=== PATIENT | female | born 1960 | race Caucasian/White ===

== ENCOUNTER 2017-11-29 07:56 | Observation (INO) | payer BC ==
[2017-11-29 08:29] LABS: #Eosinphils 0.2 thou/uL (0.0-0.7); #Lymphocytes 1.4 thou/uL (1.20-3.40); #Monocytes 0.6 thou/uL (0.11-0.59); %Basophils 0.3 % (0.0-1.0); %Eosinophils 2.4 % (0.0-10.0); %Monocytes 7.9 % (0.0-10.0); %Neutrophils 70.4 % (42.0-75.0); Hemoglobin 14.2 g/dL (12.0-16.0); Mean Corpuscular HGB CONC 32.2 g/dL (32.0-36.0); Mean Corpuscular Hemoglobin 30.6 pg (27.0-31.0); Mean Corpuscular Volume 94.8 fl (81.0-99.0); Mean Platelet Volume 7.1 fL (7.4-10.4); Platelet Count 297 thou/uL (130-400); Red Blood Cell (RBC) Count 4.64 mill/uL (4.20-5.40); White Blood Cell (WBC) Count 7.1 thou/uL (4.8-10.8)
[2017-11-29] MEDS ORDERED: Ondansetron ODT 4 MG TAB ONE (08:44)
[2017-11-29 08:58] LABS: CKMB 0.7 ng/mL (0-6.6); Troponin I Less than 0.010 ng/mL (< 0.028)
[2017-11-29 09:00] LABS: ALT (SGPT) 22 U/L (8-55); AST (SGOT) 18 U/L (5-34); Albumin 3.6 g/dL (3.5-5.0); Alkaline Phosphatase 60 U/L (40-150); Anion Gap 12 mmol/L (10-20); BUN (Urea Nitrogen) 11 mg/dL (9.8-20.1); Bilirubin, Total 0.4 mg/dL (0.2-1.2); CK (CPK) 45 U/L (29-168); Calc. Creatinine Clearance 0 mL/min (70-130); Calcium 9.7 mg/dL (7.8-10.44); Carbon Dioxide 25 mmol/L (22-29); Chloride 104 mmol/L (98-107); Estimated GFR-MDRD 84; Glucose 117 mg/dL (70-105); Lipase 32 U/L (8-78); Potassium 4.1 mmol/L (3.5-5.1); Protein, Total 7.6 g/dL (6.0-8.3); Sodium 137 mmol/L (136-145)
--- NOTE | 2017-11-29 09:02 | RAD ---
PORTABLE CHEST 1 VIEW: Date: 11/29/17 Time: 0840 hours HISTORY: Chest pain, abdominal pain, nausea, and vomiting. FINDINGS/IMPRESSION: The heart size is borderline. The lungs are well expanded without confluent areas of consolidation, p neumothorax, veronika pulmonary edema, or pleural effusions. POS: [facility]
--- NOTE | 2017-11-29 09:55 | CT ---
CT ANGIOGRAM OF CHEST WITH IV CONTRAST AND 3D POSTPROCESSING CT ANGIOGRAM OF THE ABDOMEN WITH IV CONTRAST AND 3D POSTPROCESSING: Date: 11/29/17 HISTORY: 57-year-old female with chest pain radiating to the back. Concern for aortic dissection. FINDINGS: The thoracoabdominal aorta demonstrates no evidence of vascular calcifications or aneurysmal dilatati on. No intimal flap is seen to suggest dissection. There is good flow and normal caliber of the uriel c axis, SMA, ANTHONY, and renal arteries. The pulmonary arterial vasculature is well opacified without fi lling defects to suggest pulmonary embolism. No pleural or pericardial effusions are seen. There are mild patchy ground-glass infiltrates bilatera lly. A peripheral 7.0 mm nodule is seen in the left lower lobe posteriorly. No free air, or free fluid is seen in the abdomen. Calcified gallstones are present. The liver, splee n, pancreas, adrenal glands, and kidneys are normal. There are degenerative changes in the thoracolum bar spine. IMPRESSION: 1. No evidence of aortic aneurysm or dissection. 2. 7.0 mm left lower lobe nodule. 3. Cholelithiasis. 4. Patchy ground-glass infiltrates in the lungs bilaterally. RECOMMENDATION: A follow-up CT scan of the chest is recommended in [address] POS: [facility]
[2017-11-29] MEDS ORDERED: Ondansetron HCl/PF 4 MG/2 ML Vial ONE ×2 (10:42→10:46)
[2017-11-29] MEDS ORDERED: Lidocaine Viscous Sol 2% 15 ml UD Cup ONE (10:46)
[2017-11-29] MEDS ORDERED: Promethazine HCl 25 MG/ML VIAL ONE (12:01)
[2017-11-29] MEDS ORDERED: Mag-Al 1200 mg/1200 mg/30 ML UDCUP ONE (12:11)
[2017-11-29] MEDS ORDERED: Pantoprazole 40 MG VIAL ONE (12:55)
[2017-11-29 13:15] LABS: CKMB 0.6 ng/mL (0-6.6); Troponin I Less than 0.010 ng/mL (< 0.028)
[2017-11-29] MEDS ORDERED: Ondansetron HCl/PF 4 MG/2 ML Vial IVP PRN (13:36)
[2017-11-29 14:29] VITALS: BMI 28.2
[2017-11-29] MEDS: Sodium Chloride 0.9% 1,000 ML IV SCH (14:56)
[2017-11-29 15:55] LABS: Troponin I Less than 0.010 ng/mL (< 0.028)
[2017-11-29] MEDS ORDERED: Lidocaine 2% Viscous Solution 20 ML, Aluminum & Magnesium Hydroxide 30 ML, Donnatal Eli... SSW SCH ×3 (16:00)
--- NOTE | 2017-11-29 16:16 | ULT ---
RIGHT UPPER QUADRANT SONOGRAM: Date: 11/29/17 HISTORY: Right upper quadrant pain. FINDINGS: Shadowing stones are present within the dependent portion of the gallbladder lumen. There is no gallb ladder wall thickening or pericholecystic fluid. Common duct is 0.6 cm. Liver is unremarkable without focal mass or intrahepatic biliary dilatation. No free fluid is apparent. IMPRESSION: Cholelithiasis. No evidence of acute biliary obstruction. POS: [facility]
[2017-11-29] MEDS ORDERED: guaiFENesin/Codeine Phosphate 200 mg/20 mg 10 ml UD Cup PO PRN (16:40)
[2017-11-29] MEDS ORDERED: ISOVUE-370 76%-LOCM 1 ML ONE (16:53)
--- NOTE | 2017-11-29 17:59 | HP ---
CHIEF COMPLAINT: Epigastric pain. HISTORY OF PRESENT ILLNESS: Patient is a very pleasant 57-year-old female with no signific ant past medical history who comes in today to the ER with complaints of significant epigastric pain radiating to her back. The patient stated that she woke up this morning at around 5:30 with severe e pigastric pain radiating to her back with some and one bout of vomiting; however, no diarrhea. The p atient denies any fevers or chills. The patient states that she did eat a hamburger last night, whlucille h was not home cooked. However, she has no other family member that has been also ill. The patient furthermore states that patient has been having on and off congestion with cough going on for the pas t year. Initially, she was seen by PCP in October and was given some steroids and antibiotics which her symptoms resolved. However, in summertime, her symptoms came back, was put again on steroids and some antibiotics and then again her symptoms started about 2 weeks ago. Patient states that she was not feeling well as she was congested. She thought she had "the flu." However, she did not go to h er PCP. The patient denies any significant shortness of breath, any chest pressure or chest discomfo rt. No recent use of any medications or anything that would exacerbate the epigastric pain. The pat ient in the ER initially underwent an x-ray which showed some bilateral infiltrates, so she underwent a CTA to rule out any aortic dissection. She had no aortic dissection; however, had chronic ground glass opacity in both of her lungs. She was started on antibiotics in the ER. PAST MEDICAL HISTORY: Patient denies any significant past medical history. PAST SURGICAL HISTORY: The patient had C-sections with her children. SOCIAL HISTORY: She denies any smoking or secondhand smoking. Denies any alcohol use; however, she does live in a home that uses wood burning heating system. ALLERGIES: She has no known drug allergies. MEDICATIONS: She takes none. SOCIAL HISTORY: She denies any smoking or secondhand smoking. Denies any alcohol use; however, she does live in a home that uses wood burning heating system. REVIEW OF SYSTEMS: She does have significant epigastric pain radiating to her back and complains of a cough; however, she is spitting up some clear sputum. Otherwise, everything is negative. PHYSICAL EXAMINATION: GENERAL: Patient appears a little sick, appears to be congested. HEENT: Normocephalic, atraumatic. NECK: No lymphadenopathy. Mucosa appears a little bit dry. CARDIOVASCULAR: S1, S2 present. No murmurs, rubs or gallops. LUNGS: Clear upon auscultation. ABDOMEN: Bowel sounds are present x2. The patient does have mild tenderness upon palpation of the e pigastric area. No flank tenderness noted. EXTREMITIES: No edema noted. LABORATORY DATA AND IMAGING DATA: Lab castillo, patient's lipase was normal at 32, 137 of sodium, potass ium 4.1, chloride of 104, carbon dioxide of 25, glucose of 117, creatinine 0.72. AST and ALT normal, alkaline phosphatase normal. Troponin is negative. Her WBCs 7.1, hemoglobin of 14.2, platelets of 297. The patient had a CT chest which indicated no evidence of aortic aneurysm or dissection. She d oes have a 7.0 mm left lower pleural lobe nodule and patchy ground glass infiltrates in her lung bila terally. ASSESSMENT AND PLAN: The patient is a very pleasant 57-year-old female who initially presented to [facility] with severe epigastric pain radiating to her back. 1. Epigastric pain. Differential including pancreatitis versus peptic ulcer disease versus aortic d issection versus acute gallbladder or cholecystitis. Patient's lipase is completely normal. The pat ient did get Protonix in the ER and gastrointestinal cocktail with some relief. Patient's hemoglobin and hematocrit is stable. She has got no recent use of any nonsteroidal anti-inflammatory drugs. T he patient did undergo right upper quadrant ultrasound which indicated cholelithiasis; however, no ac [place] cholecystitis was noted. Her LFTs and alkaline phosphatase, including her bilirubin were normal. Troponins also were negative. No EKG was done. We will order an EKG. We will start patient on Pe pcid 20 mg b.i.d. Also, we will give patient gastrointestinal cocktail. If patient's abdominal pain does not improve, may consider consulting GI. However, right now, I believe and also we will hydrat e the patient with some fluids. She appears to be mildly dehydrated, which could also be worsening h er abdominal pain. 2. Patchy ground glass infiltrates. I am not sure patient's baseline chest x-ray. She has not had one in this facility before; however, she just had a couple bouts which appeared to be possible bronc hitis last year. Prior to that, she had no symptoms. I did ask for a history of possible shortness of breath on exertion which she had none. She had no orthopnea or PND. I do not think this would be in terms of any heart failure. However, the ground glass infiltrates need further workup in terms o f a pulmonary consult, which I will give her the name and number, so she can follow up as an outpatie nt. I do not believe this is urgent to be treated while she is hospitalized. Patient is not hypoxic . Her oxygen saturation in the ER was 95% on room air. For deep venous thrombosis prophylaxis, shyam ent is quite ambulatory. We will just start her on sequential compression devices.
[2017-11-29] MEDS: Famotidine/PF 20 mg/2ml Vial SLOW IVP SCH (19:43)
[2017-11-29] MEDS ORDERED: FLU VACC QS2017-18 36 mo. & older 0.5 ML SYRINGE IM ONE (21:00)
[2017-11-30] MEDS: Sodium Chloride 0.9% 1,000 ML IV SCH (03:52)
[2017-11-30 06:08] LABS: ALT (SGPT) 18 U/L (8-55); AST (SGOT) 15 U/L (5-34); Albumin 3.3 g/dL (3.5-5.0); Alkaline Phosphatase 56 U/L (40-150); Anion Gap 9 mmol/L (10-20); BUN (Urea Nitrogen) 5 mg/dL (9.8-20.1); Bilirubin, Total 0.6 mg/dL (0.2-1.2); Calc. Creatinine Clearance 116 mL/min (70-130); Calcium 8.9 mg/dL (7.8-10.44); Carbon Dioxide 27 mmol/L (22-29); Chloride 104 mmol/L (98-107); Estimated GFR-MDRD Greater than 90; Globulin 3.6 g/dL (2.4-3.5); Glucose 115 mg/dL (70-105); Potassium 3.4 mmol/L (3.5-5.1); Protein, Total 6.9 g/dL (6.0-8.3); Sodium 137 mmol/L (136-145)
[2017-11-30 06:35] LABS: Band 9 % (5-11); Eosinophils 1 % (0-10); Hemoglobin 12.8 g/dL (12.0-16.0); Lymphocytes 15 % (21-51); MDiff Complete? YES; Mean Corpuscular HGB CONC 32.1 g/dL (32.0-36.0); Mean Corpuscular Hemoglobin 30.6 pg (27.0-31.0); Mean Corpuscular Volume 95.4 fl (81.0-99.0); Mean Platelet Volume 7.5 fL (7.4-10.4); Monocytes 7 % (0-10); Neutrophil 68 % (42-75); Platelet Count 267 thou/uL (130-400); RBC Distribution Width 12.2 % (11.5-14.5); Red Blood Cell (RBC) Count 4.18 mill/uL (4.20-5.40); White Blood Cell (WBC) Count 10.9 thou/uL (4.8-10.8)
[2017-11-30] MEDS: Famotidine/PF 20 mg/2ml Vial SLOW IVP SCH (07:34)
[2017-11-30] MEDS ORDERED: Potassium Chloride 20 MEQ TAB PO SCH (08:00)
[2017-11-30 11:30] VITALS: BP 119/76; TEMP 97.9
[2017-11-30 11:43] LABS: Bilirubin Negative (Negative); Blood, Urine Negative (Negative); Glucose, Urine (Dipstick) Negative (Negative); Leukocyte Negative (Negative); Nitrite Negative (Negative); Protein, Urine (Dipstick) Negative (Neg-Trace); Urobilinogen 0.2 mg/dL (0.2-1.0)
[2017-11-30 11:48] LABS: Clarity CLEAR (Clear)
[2017-11-30 11:49] LABS: Specific Gravity, Urine 1.003 (1.002-1.036)
[2017-11-30 11:50] LABS: Bacteria/HPF None Seen HPF (None Seen); Hyaline Casts/LPF NONE SEEN LPF (0-3 Hyaline); RBC/HPF None Seen HPF (0-3); Squamous Epithelial 0-3 HPF (0-3); WBC/HPF None Seen HPF (0-3)
--- NOTE | 2017-12-01 00:46 | DIS ---
DATE OF ADMISSION: 11/29/2017 DATE OF DISCHARGE: 11/30/2017 DISCHARGE DIAGNOSES: 1. Epigastric pain, possible gastritis. 2. Ground glass infiltrate on lung bilaterally and a 7.0 mm left lower lobe nodule. SUMMARY OF HOSPITAL COURSE: The patient is a very pleasant 57-year-old female with no significant pa st medical history, who initially presented to the hospital with severe epigastric pain radiating to her back. The patient's lipase was normal. LFTs were normal. The patient underwent a CT for a poss ible dissection, which was noted negative. However, on the CT chest for dissection, it was noted to have significant amount of ground glass infiltrates in the lung bilaterally with a 7.0 mm left lower lobe lung nodule; however, no dissection was noted. The patient underwent a right upper quadrant ult rasound, which indicated cholelithiasis; however, no cholecystitis was noted and no biliary obstructi on was noted. The patient initially was put on IV antibiotics per ED. Procalcitonin was normal. IV antibiotics were discontinued. The patient did state that she has been having 2-3 bouts of bronchit is in the last year, also had bronchitis as a child. Based on the significant ground glass findings on the CAT scan, I did curbside a furniture upholsterer apprentice who recommended to put the patient on azithromycin fo r a few days and also follow up with Pulmonology as outpatient for her ground glass opacity and also for his 0.7 mm lung nodule, which I have discussed in detail with the patient and patient's . The patient's epigastric pain improved with Pepcid and with gentle hydration. She was able to rolando ate a meal and was discharged home. She will follow up with her PCP next week and also with Pulmonol ashley for her findings on the CAT scan. DISCHARGE MEDICATIONS: Pepcid 20 mg b.i.d. and azithromycin 250 mg for 5 days; however, initially at first she will take 500 mg.
== END 2017-11-30 15:31 | disposition home or self-care (01) ==
LOC: ERS 07:56 → INTOOBSV 12:55 → T4-B 12:55
PROVIDERS: ADMIT Internal Medicine; ATTEND Internal Medicine
DX: R10.13 Epigastric pain (principal); R91.1 Solitary pulmonary nodule; R91.8 Other nonspecific abnormal finding of lung field; X08.8XXA Exposure to other specified smoke, fire and flames, initial encounter; Y92.009 Unspecified place in unspecified non-institutional (private) residence as the place of occurrence of the external cause; Z98.891 History of uterine scar from previous surgery
CPT/HCPCS: 36415; 71045; 71275; 76705; 80053; 81001; 82553; 83690; 84145; 84484; 85007; 85025; 85027; 87040; 93005; 93010; 94760; 96361; 96365; 96375; 96376; C9113; G0378; J1956; J2270; J2405; J2550; Q0162; S0028

== ENCOUNTER 2018-01-07 09:12 | Outpatient (CLI) | payer BC ==
--- NOTE | 2018-01-07 12:00 | RAD ---
PA AND LATERAL VIEWS CHEST: HISTORY: Dyspnea. COMPARISON: 11/29/2017 FINDINGS: The heart size is borderline. The lungs are well expanded without confluent areas of consolidation, pneumothorax, or pleural effusions. No veronika pulmonary edema is seen. There are mild degenerative c hanges in the spine. IMPRESSION: No acute process. POS: [facility]
== END 2018-01-07 09:13 | disposition home or self-care (01) ==
LOC: RAD 09:12
PROVIDERS: ATTEND Internal Medicine Critical Care Medicine
DX: R06.00 Dyspnea, unspecified (principal)
CPT/HCPCS: 71046

== ENCOUNTER 2019-03-25 10:19 | Inpatient (IN) | payer BC ==
[2019-03-25 10:43] LABS: Hemoglobin 15.9 g/dL (12.0-16.0); Mean Corpuscular HGB CONC 32.6 g/dL (32.0-36.0); Mean Corpuscular Volume 95.2 fL (78.0-98.0); Mean Platelet Volume 8.7 fL (7.4-10.4); Platelet Count 247 thou/uL (130-400); RBC Distribution Width 15.5 % (11.5-14.5); Red Blood Cell (RBC) Count 5.12 mill/uL (4.20-5.40); White Blood Cell (WBC) Count 7.4 thou/uL (4.8-10.8)
[2019-03-25 10:52] LABS: ALT (SGPT) 2669 U/L (8-55); AST (SGOT) 2257 U/L (5-34); Albumin 3.5 g/dL (3.5-5.0); Alkaline Phosphatase 188 U/L (40-150); Anion Gap 11 mmol/L (10-20); BUN (Urea Nitrogen) 6 mg/dL (9.8-20.1); Bilirubin, Total 21.7 mg/dL (0.2-1.2); Calc. Creatinine Clearance 0 mL/min (70-130); Calcium 9.5 mg/dL (7.8-10.44); Carbon Dioxide 27 mmol/L (22-29); Chloride 97 mmol/L (98-107); Estimated GFR-MDRD 77; Globulin 4.5 g/dL (2.4-3.5); Glucose 96 mg/dL (70-105); Sodium 131 mmol/L (136-145)
[2019-03-25 11:11] LABS: Band 9 % (5-11); Eosinophils 2 % (0-10); Lymphocytes 16 % (21-51); MDiff Complete? YES; Monocytes 17 % (0-10); Neutrophil 52 % (42-75); Platelet Morphology Comment Appears Adequate; Polychromasia SLIGHT = 2-3 cells (100X) (0-2/hpf); Reactive Lymphocytes 2 % (0-10); Target Cells SLIGHT = 2-5 cells (100X) (0-1/hpf)
--- NOTE | 2019-03-25 12:52 | ULT ---
GALLBLADDER ULTRASOUND: HISTORY: Right upper quadrant abdominal pain, jaundice FINDINGS: The liver demonstrates homogeneous echotexture without focal mass or intrahepatic biliary ductal dila tation. The gallbladder is full of shadowing gallstones without gallbladder wall thickening or pericholecysti c fluid. The right kidney and visualized portions of the pancreas are normal. The common duct measures 6mm in diameter. No free fluid is seen in the Covington's pouch. IMPRESSION: Cholelithiasis.
[2019-03-25 14:02] LABS: INR-International Normal Ratio 1.3; PTT 34.7 SEC (22.9-36.1); Prothrombin Time 16.5 SEC (12.0-14.7)
[2019-03-25 14:13] LABS: Lactic Acid 0.9 mmol/L (0.5-2.2)
[2019-03-25 14:26] LABS: HBSAg Index 0.31 S/CO (0-0.99); Hep A IgM AB Non-Reactive (NonReactive); Hep B Surf Ag Non-Reactive S/CO (NonReactive); Hep C IgG Ab Non-Reactive (NonReactive); Hep C Index 0.24 S/CO (0-0.79); Hepatitis B Core IgM Abs Non-Reactive (NonReactive)
[2019-03-25 14:29] LABS: Bilirubin Large (Negative); Blood, Urine Negative (Negative); Clarity CLEAR (Clear); Glucose, Urine (Dipstick) Negative (Negative); Leukocyte Small (Negative); Nitrite Negative (Negative); Protein, Urine (Dipstick) Negative (Neg-Trace); Specific Gravity, Urine 1.006 (1.002-1.036); Urobilinogen 0.2 mg/dL (0.2-1.0)
[2019-03-25 14:32] LABS: Bacteria/HPF None Seen HPF (None Seen); Hyaline Casts/LPF 0-3 HYALINE CAST LPF (0-3 Hyaline); Pathc Cast-AUWi Flag 0.54 (0-2.49); Squamous Epithelial 0-3 HPF (0-3); WBC/HPF 0-3 HPF (0-3)
[2019-03-25 16:05] VITALS: BMI 33.8
[2019-03-25 17:37] LABS: Acetaminophen Less than 6.0 mcg/mL (10.0-30.0); Alcohol Less than 10 mg/dL (Less than 10); Iron 240 ug/dL (50-170); Iron Binding Capacity, Total 288 mcg/dL (265-497)
[2019-03-25 18:36] LABS: Amphetamine Not Detected (NotDetected); Barbiturates Screen Not Detected (NotDetected); Benzodiazepine Screen Not Detected (NotDetected); Cocaine Metabolite Screen Not Detected (NotDetected); Medtox Control Line Valid? VALID (VALID); Medtox Reader # READER 1; Methadone Not Detected (NotDetected); Methamphetamine Not Detected (NotDetected); Opiate Screen Not Detected (NotDetected); Oxycodone Screen Not Detected (NotDetected); Phencyclidine (PCP) Not Detected (NotDetected); THC/Cannabinoid Screen Not Detected (NotDetected); Tricyclic Screen Not Detected (NotDetected)
--- NOTE | 2019-03-25 21:39 | HP ---
CHIEF COMPLAINT ON ADMISSION: Acute hepatic injury with jaundice. HISTORY OF PRESENT ILLNESS: The patient is a 58-year-old female, who earlier at the end of last week began to start to turn yellow. Her intensity in yellow increased to the point where on the recommendation of a friend, she came to the emergency room for further evaluation. The jaundice was noted and all her liver tests were noted to be elevated. Gallstones were noted on abdominal ultrasound, but there was no blockage. She does not have a significant drinking history or the usual risk factors for hepatitis. However, she has been taking a great deal of supplements that may have caused hepatic injury through iron metabolism. PAST MEDICAL HISTORY: Fairly unremarkable. She is on no regular medication. PAST SURGICAL HISTORY: She has had no surgery. PAST PSYCHIATRIC HISTORY: She has no psychiatric issues. SOCIAL HISTORY: Just drinks one alcoholic beverage a week. Denies any illicit drug use. Has never smoked. ALLERGIES: SHE HAS NO KNOWN DRUG ALLERGIES. CURRENT MEDICATIONS: None. REVIEW OF SYSTEMS: GENERAL: Denies fever, chills, or malaise. HEENT: Denies drainage from ears, nose, or throat. CHEST: Denies any cough or shortness of breath. CARDIOVASCULAR: Denies palpitations or chest pain. GI: Denies nausea, vomiting, or diarrhea. : Denies dysuria or blood in urine or stool. MUSCULOSKELETAL: Denies any pain in joints, muscles, or integument. SKIN: No rashes or lesions aside from the yellow intensity that has also caused icterus in her eyes. PSYCHIATRIC: Negative as well. PHYSICAL EXAMINATION: VITAL SIGNS: Blood pressure 142/80, pulse 76, respirations 20, and temperature 97.7. Pain scale zero. O2 saturation 96% on room air. GENERAL: This is an obese, jaundiced female, alert, oriented, and cooperative. HEENT: Normocephalic, atraumatic. Pupils are equal, round, and reactive to light. Extraocular muscles are intact. TMs, nares, and pharynx are clear. NECK: Supple. Trachea midline. CHEST: Clear to auscultation. BREASTS: Deferred. HEART: Regular rate and rhythm without murmur. ABDOMEN: Large, unable to appreciate hepatomegaly or tenderness. : Deferred. EXTREMITIES: Without clubbing, cyanosis, or significant edema. It is just fat rather than edema present. SKIN: With intense jaundice and conjunctiva icterus. NEUROLOGIC: Cranial nerves are intact. Gait and cerebellar function not tested. Sensory exam is grossly intact. Mental status is nonfocal and clear. LABORATORY DATA: Lab work on admission shows WBCs at 7.4, hemoglobin 15.9, hematocrit 48.7 with platelets at 247. Sodium 131, potassium 4.0, chloride 97, CO2 of 27, BUN 6, creatinine 0.77 with a GFR of 77, glucose 96. Iron at 240, TIBC at 288, ferritin at 8328, total bilirubin at 21.7, AST 2257, ALT 2669, alkaline phos 188, ammonia 53. Lactate dehydrogenase is 619, lipase 43. Hepatitis diagnostic profile is negative, nonreactive for A, B, or C. Urinalysis shows large bilirubin, but otherwise unremarkable. Toxicology is completely negative. IgG elevated at 2756. PT is 16.5, INR 1.3, APTT is 34.7. Abdominal ultrasound shows cholelithiasis, but no evidence of cholecystitis. ASSESSMENT: 1. Acute hepatic injury with secondary jaundice. 2. Iron overload disorder. 3. Morbid obesity. 4. Probable overuse of dietary supplements. PLAN: Identify the contents of the dietary supplements, serially re-evaluate her liver, and GI consultation. The patient may need plasmapheresis and removal of iron, and we will serially re-evaluate her. Job ID: [id number]
--- NOTE | 2019-03-25 23:52 | CON ---
DATE OF CONSULTATION: 03/25/2019 CHIEF COMPLAINT: Jaundice. HISTORY OF PRESENT ILLNESS: Ms. Ledesma is a 58-year-old woman who 2 weeks ago had been traveling in [place] and while she was there noted some nausea. She had some persistent nausea over the next week, but this has since resolved. She has had some fatigue over the last couple of weeks, but no other significant symptoms. A week ago, she noticed that she started becoming jaundiced. Her daughter finally today told her that she needed to go to the emergency room for further care after she was having worsening noticeable jaundice. She has had no nausea, vomiting, persistently. No vomiting. No diarrhea constipation or blood in the stool. No fever. No weight loss. No prior history of liver disease. She only has an occasional drink of alcohol. She had one Trisha in February. No alcohol prior to that since September. No Tylenol use. Otherwise, she has been healthy, but she has been taking a large number of natural supplements over the last 6 months. She started a "detox" back in September. She has a multiple vitamin with numerous ingredients. She has taken multiple other supplements in addition to this. She has been on 16 different supplements over the last few months. She has no other sores or rashes and she does not itch. She has not eaten any raw seafood or has not been exposed to anyone with acute hepatitis that she is aware of. PAST MEDICAL HISTORY: Negative. She states she had a colonoscopy by Dr. Chester previously for screening. PAST SURGICAL HISTORY: x3. FAMILY HISTORY: Her mother of meningococcal meningitis. Autopsy was done and incidentally she was found to have cirrhosis of the liver. There was no prior known diagnosis of cirrhosis. The cause of that liver disease is unknown. Her mother was not a drinker as far she is aware. SOCIAL HISTORY: Rare alcohol use. No drugs and no tobacco. ALLERGIES: NO KNOWN DRUG ALLERGIES. MEDICATIONS: Multiple natural supplements as stated in the history of present illness. The patient is working on obtaining the pill bottles and supplement containers to try to get better idea of what she has actually been taking. REVIEW OF SYSTEMS: Negative x10 systems reviewed except as stated in the history of present illness. PHYSICAL EXAMINATION: VITAL SIGNS: Temperature 98.0, pulse 78, blood pressure 111/72. GENERAL: She is jaundiced. HEENT: She has scleral icterus. She has no asterixis. Her oropharynx is clear without lesions. NEUROLOGIC: She is alert and oriented x3. NECK: She has no cervical or supraclavicular lymphadenopathy. LUNGS: Clear to auscultation bilaterally. HEART: Regular rate and rhythm without murmur. ABDOMEN: Soft, nontender, and nondistended. Bowel sounds are present. EXTREMITIES: No lower extremity edema. Her liver edge is palpable 2 cm below the costal margin with inspiration. LABORATORY DATA: Sodium 131, potassium 4.0, chloride 97, CO2 27, BUN 6, creatinine 0.77, calcium 9.5, bilirubin 21.7, AST 2257, ALT 2669, alkaline phosphatase 188, ammonia 53, albumin 3.5, globulin 4.5, lipase 43, INR 1.3. White blood cell count 7.4, hemoglobin 15.9, platelets 247. Eosinophils 2%. Hepatitis A IgM negative. Hepatitis B surface antigen negative. Hepatitis B core IgM negative. Hepatitis C antibody negative. IMAGING: Abdominal ultrasound today showed cholelithiasis with a 6 mm common bile duct. IMPRESSION: 1. Acute hepatitis with hepatocellular injury pattern. Her transaminases are over 2000. Hepatitis A, B, and C are negative for evidence of acute infection. I would place autoimmune hepatitis at the top of my differential at this point, given the negative viral hepatitis, labs and elevated globulin at 4.5. We will rule out herpes hepatitis, cytomegalovirus hepatitis, Debbie-Kellogg virus hepatitis, hepatitis E. A drug or toxin induced hepatitis secondary to all these supplements is also possible. There has been no known Tylenol use. We will check a level for completeness sake. We will also check iron saturation and alpha-1 antitrypsin level, mitochondrial antibody, smooth muscle antibody and total IgG level. If the markers for autoimmune hepatitis are elevated, then liver biopsy will be indicated. She would also start on prednisone at that point. We could then transition to prednisone combined with azathioprine to reduce the prednisone dose at a later date. Prednisone would then be tapered over a prolonged period. 2. Cholelithiasis. This is incidental and not related to her acute hepatitis. RECOMMENDATIONS: 1. Obtain a complete list of the supplements that she has been taking. 2. Extensive lab work to include the ones noted in the assessment in the previous paragraph. 3. Follow trend of her liver tests and INR. Job ID: [id number]
[2019-03-26 05:52] LABS: INR-International Normal Ratio 1.5; Prothrombin Time 17.8 SEC (12.0-14.7)
[2019-03-26 06:00] LABS: ALT (SGPT) 2203 U/L (8-55); AST (SGOT) 1872 U/L (5-34); Albumin 2.9 g/dL (3.5-5.0); Alkaline Phosphatase 148 U/L (40-150); Anion Gap 11 mmol/L (10-20); BUN (Urea Nitrogen) 6 mg/dL (9.8-20.1); Bilirubin, Total 19.3 mg/dL (0.2-1.2); Calc. Creatinine Clearance 117 mL/min (70-130); Carbon Dioxide 27 mmol/L (22-29); Chloride 103 mmol/L (98-107); Estimated GFR-MDRD 80; Globulin 3.8 g/dL (2.4-3.5); Glucose 101 mg/dL (70-105); Potassium 3.6 mmol/L (3.5-5.1); Protein, Total 6.7 g/dL (6.0-8.3); Sodium 137 mmol/L (136-145)
[2019-03-26 06:18] LABS: Band 18 % (5-11); Eosinophils 5 % (0-10); Hemoglobin 14.3 g/dL (12.0-16.0); Lymphocytes 12 % (21-51); MDiff Complete? YES; Mean Corpuscular HGB CONC 32.3 g/dL (32.0-36.0); Mean Corpuscular Hemoglobin 30.9 pg (27.0-31.0); Mean Corpuscular Volume 95.6 fL (78.0-98.0); Mean Platelet Volume 9.2 fL (7.4-10.4); Monocytes 19 % (0-10); Neutrophil 46 % (42-75); Platelet Count 213 thou/uL (130-400); RBC Distribution Width 15.7 % (11.5-14.5); Red Blood Cell (RBC) Count 4.64 mill/uL (4.20-5.40); White Blood Cell (WBC) Count 6.7 thou/uL (4.8-10.8)
[2019-03-26] MEDS: Ondansetron PF 4 MG/2 ML Vial SLOW IVP PRN (20:50)
[2019-03-26] MEDS ORDERED: Phytonadione 10 MG/ML AMP SC SCH (21:45)
--- NOTE | 2019-03-26 22:02 | PRG ---
DATE OF SERVICE: 03/26/2019 SUBJECTIVE: Ms. Ledesma still has no complaints. No abdominal pain, nausea, or vomiting. Her mental status has been normal. OBJECTIVE: VITAL SIGNS: Temperature 98.3, pulse 76, blood pressure 96/62. GENERAL: She is in no acute distress. Alert and oriented x3. HEENT: She is jaundiced and her sclerae are icteric. LUNGS: Clear to auscultation bilaterally. HEART: Regular rate and rhythm without murmur. ABDOMEN: Soft, nontender, nondistended. Bowel sounds are present. EXTREMITIES: No lower extremity edema. NEUROLOGIC: Reveals no asterixis. LABORATORY DATA: White blood cell count 6.7, hemoglobin 14.3, platelets 213. INR is 1.5 today, up from 1.3 yesterday. Creatinine 0.75. Iron 240, TIBC 288, ferritin 8328. Bilirubin 19.3, AST 1872, ALT 2203, alkaline phosphatase 148. LDH 619. Albumin 2.9, globulin 3.8. AFP 43.9. Acetaminophen was undetectable. Alcohol was undetectable. Urine tox screen was otherwise negative. Acute viral hepatitis panel for A, B, and C were negative. Total IgG level 2756. IMPRESSION: Acute hepatitis with marked elevation of the bilirubin and transaminases over 2000. Her bilirubin is 19.3 today. AST 1872 and ALT 2203, slightly improved from yesterday. Her INR, however, is increased from 1.3 to 1.5, which could indicate worsening liver function. I suspect the most likely cause of her acute hepatitis is autoimmune hepatitis given the elevated globulin on presentation. Drug-induced liver injury is possible given that she has been taking a very large amount of multiple supplements. I reviewed some of the ingredients of the supplements today and I do not see an obvious offender as a source for the hepatitis. We will continue to research further. Acute viral hepatitis A, B, and C are negative. Her iron saturation and ferritin are significantly elevated. I will check a hemochromatosis gene. However, hemochromatosis should not cause an acute hepatitis with transaminases above 2000 and bilirubin of 19.3. She could have underlying hemochromatosis now with a second acute injury. RECOMMENDATIONS: 1. Await smooth muscle antibody and mitochondrial antibody and viral studies for hepatitis E, HSV, EBV, and CMV. 2. If she starts showing signs of liver failure including altered mental status and significantly worsening INR, then she will need to be immediately transferred to a transplant center. 3. Recheck the LFTs and INR tomorrow morning. Job ID: [id number]
[2019-03-27 05:46] LABS: INR-International Normal Ratio 1.5; Prothrombin Time 18.4 SEC (12.0-14.7)
[2019-03-27 06:06] LABS: ALT (SGPT) 2293 U/L (8-55); AST (SGOT) 1934 U/L (5-34); Albumin 2.9 g/dL (3.5-5.0); Alkaline Phosphatase 148 U/L (40-150); Anion Gap 11 mmol/L (10-20); BUN (Urea Nitrogen) 7 mg/dL (9.8-20.1); Bilirubin, Total 19.8 mg/dL (0.2-1.2); Calc. Creatinine Clearance 115 mL/min (70-130); Calcium 8.9 mg/dL (7.8-10.44); Carbon Dioxide 28 mmol/L (22-29); Chloride 103 mmol/L (98-107); Estimated GFR-MDRD 78; Globulin 3.8 g/dL (2.4-3.5); Glucose 97 mg/dL (70-105); Potassium 3.8 mmol/L (3.5-5.1); Protein, Total 6.7 g/dL (6.0-8.3); Sodium 138 mmol/L (136-145)
[2019-03-27] MEDS: Ondansetron PF 4 MG/2 ML Vial SLOW IVP PRN (06:13)
[2019-03-27 15:15] LABS: Alpha-1-Antitrypsin 203 mg/dL (90-200)
--- NOTE | 2019-03-27 19:12 | PRG ---
DATE OF SERVICE: 03/27/2019 SUBJECTIVE: Ms. Ledesma has no complaints. No abdominal pain, nausea, vomiting, diarrhea, or blood in the stool. She did have a little bit of constipation over the last couple of days and had a good bowel movement today. States she does get prone to constipation at times. OBJECTIVE: VITAL SIGNS: Temperature 98.3, pulse 70, blood pressure 96/57. GENERAL: She is in no acute distress. She is jaundiced. Alert and oriented x3. No asterixis. LUNGS: Clear to auscultation bilaterally. HEART: Regular rate and rhythm without murmur. ABDOMEN: Soft, nontender, nondistended. Bowel sounds are present. EXTREMITIES: No lower extremity edema. LABORATORY DATA: INR 1.5 today. Creatinine 0.76. Bilirubin 19.8, AST 1934, ALT 2293, alkaline phosphatase 148. Albumin 2.9. Alpha-1 antitrypsin level 203, ceruloplasmin 33. IMPRESSION: 1. Acute hepatitis with hepatocellular injury pattern. Her INR remains elevated at 1.5, but it did not go up further today. She did receive a dose of vitamin K last night. I would favor the diagnoses at the top of the differential right now are autoimmune hepatitis or drug-induced liver injury from the supplements. She was on numerous supplements with a "Live Pure" system. She was taking 16 different supplement combinations within this brand. On review of the content, several of the individual supplements have been associated with liver injury. 2. Her iron saturation and ferritin are quite high. She could have underlying hemochromatosis that could put her at increased risk for liver injury from the supplements. Hemochromatosis Gene PCR has been ordered and is pending. 3. Alpha fetoprotein is mildly elevated. This is likely due to the acute inflammation in the liver. Given the question of hemochromatosis which can significantly increase the risk for liver cancer, it would be reasonable to perform an MRI of the liver to rule out any focal mass in the meantime. RECOMMENDATIONS: 1. Await lab results including smooth muscle antibody, mitochondrial antibody. Viral studies including CMV, EBV, HSV, and hepatitis E. Await hereditary hemochromatosis genetic testing. 2. If the smooth muscle antibody is significantly elevated, then she can likely start steroids and then will need liver biopsy to confirm diagnosis. 3. If her liver tests fail to improve, then she will likely require liver biopsy anyway. 4. If she shows any signs of mental status change or if her INR worsens, then she will need to be transferred to a liver transplant center. 5. We will follow through with MRI of the liver as stated above. 6. Dr. Quiroga will be covering for the weekend. 7. Check trend of the liver tests and INR tomorrow morning. Job ID: [id number]
[2019-03-28 05:35] LABS: INR-International Normal Ratio 1.4; Prothrombin Time 17.3 SEC (12.0-14.7)
[2019-03-28 05:51] LABS: ALT (SGPT) 2269 U/L (8-55); AST (SGOT) 1982 U/L (5-34); Albumin 2.8 g/dL (3.5-5.0); Alkaline Phosphatase 140 U/L (40-150); Anion Gap 9 mmol/L (10-20); BUN (Urea Nitrogen) 8 mg/dL (9.8-20.1); Bilirubin, Total 20.8 mg/dL (0.2-1.2); Calc. Creatinine Clearance 125 mL/min (70-130); Calcium 8.7 mg/dL (7.8-10.44); Carbon Dioxide 30 mmol/L (22-29); Chloride 103 mmol/L (98-107); Estimated GFR-MDRD 86; Globulin 3.7 g/dL (2.4-3.5); Glucose 78 mg/dL (70-105); Potassium 3.7 mmol/L (3.5-5.1); Protein, Total 6.5 g/dL (6.0-8.3); Sodium 138 mmol/L (136-145)
--- NOTE | 2019-03-28 11:02 | MRI ---
MRI OF THE ABDOMEN WITHOUT AND WITH CONTRAST: COMPARISON: None. HISTORY: Jaundice and cholelithiasis. Evaluate for hepatic mass. TECHNIQUE: Multiplanar, multisequence MR images were obtained of the abdomen without and with IV contrast. FINDINGS: There are multiple gallstones in the gallbladder. The common bile duct is normal in caliber measurin g 6 mm without filling defects. No intrahepatic biliary dilatation is seen. The liver, kidneys, adrenal glands, spleen, and pancreas are unremarkable. No abnormal enhancement i s seen. No abdominal adenopathy is seen. IMPRESSION: 1. Cholelithiasis without evidence of biliary dilatation. 2. No focal liver mass identified. POS: [facility]
--- NOTE | 2019-03-28 20:23 | PRG ---
DATE OF SERVICE: 03/28/2019 REASON FOR CONSULTATION: Elevated LFTs. SUBJECTIVE: The patient states that she is doing well today with no acute events or problems overnight. She currently denies any nausea, vomiting, fevers, chills, abdominal pain, or GI bleeding. OBJECTIVE: VITAL SIGNS: Temperature 98.1, pulse 77, blood pressure 99/62, respiratory rate saturating 90% on room air. GENERAL: The patient is lying in bed, in no acute distress. Alert and oriented x4. No asterixis. CARDIOVASCULAR: Regular rate and rhythm. RESPIRATORY: Clear to auscultation bilaterally. ABDOMEN: Normoactive bowel sounds. Soft, nontender, and nondistended. EXTREMITIES: No cyanosis, clubbing, or edema. LABORATORY DATA: INR 1.4. Chemistry with sodium of 138, potassium 3.7, chloride 103, CO2 30, BUN 8, creatinine 0.7, glucose 78. AST 1982, ALT 2269, alkaline phosphatase 140, total bilirubin 20.8, AFP 43, alpha-1 efferent antitrypsin 203, and ceruloplasmin 33. IMAGING DATA: MRI obtained on March 28, 2019, showed multiple gallstones within the gallbladder, but no evidence of choledocholithiasis or intrahepatic biliary dilatation. Otherwise, the liver, kidneys, adrenal gland, spleen and pancreas were unremarkable with no evidence of focal liver mass identified. ASSESSMENT: The patient is a 58-year-old female with no significant past medical history, presenting with complaints of jaundice with laboratory studies consistent with hepatocellular pattern. Acute hepatitis with hepatocellular injury pattern. The patient is presenting with a significant elevation in both AST, ALT, and total bilirubin consistent with hepatocellular injury. She did mention being on numerous supplements in the recent past that could potentially contribute to her current situation. However, she does have an elevated IgG, which does put her at increased risk for autoimmune hepatitis. Her iron saturation and ferritin levels are also quite high, raising the question for underlying hemochromatosis. However, hemochromatosis does not typically flare and generate this type of pattern with LFT inflammation. At this time, the diagnosis of her acute hepatitis is unknown with current differential including autoimmune hepatitis, viral hepatitis E, cytomegalovirus, Debbie Kellogg virus and primary biliary cirrhosis. RECOMMENDATIONS: 1. We would follow up on previously ordered labs including antismooth muscle antibody, antimitochondrial antibody and viral studies for CMV, EBV, HSV, and hepatitis C. 2. If the antismooth muscle antibody is elevated, we would start the patient on steroids, but will ultimately need a liver biopsy to confirm the diagnosis. 3. We would continue to trend LFTs and INR daily for signs of liver dysfunction. An elevated INR, and/or evidence of hepatic encephalopathy could be harbingers of worsening liver failure or harbingers of impending liver failure. It would necessitate transferring the patient to a liver transplant center. We will continue to follow. Please call with any questions. Job ID: [id number]
[2019-03-29 05:59] LABS: INR-International Normal Ratio 1.5; Prothrombin Time 17.9 SEC (12.0-14.7)
--- NOTE | 2019-03-29 17:28 | PRG ---
DATE OF SERVICE: 03/29/2019 REASON FOR CONSULTATION: Elevated LFTs. SUBJECTIVE: The patient denies any acute events or problems overnight with today, stating that she is feeling well with no problems. Currently, she denies any nausea, vomiting, fevers, chills, abdominal pain, GI bleeding, or itching. OBJECTIVE: VITAL SIGNS: Temperature 97.5, pulse 68, blood pressure 100/64, respiratory rate 18, saturating 90% on room air. GENERAL: The patient was lying in bed, in no acute distress. Alert and oriented x4. CARDIOVASCULAR: Regular rate and rhythm. RESPIRATORY: Clear to auscultation bilaterally. ABDOMEN: Normoactive bowel sounds. Soft, nontender, and nondistended. EXTREMITIES: No cyanosis, clubbing, or edema. HEENT: Positive scleral icterus. LABORATORY DATA: INR 1.5. IMAGING DATA: No current GI imaging is available for review. ASSESSMENT AND PLAN: The patient is a 58-year-old female with no significant past medical history, presenting with complaints of jaundice and lab studies consistent with hepatocellular injury pattern and subsequent hepatitis. Acute hepatitis with hepatocellular injury pattern: The patient is presenting with significant elevation in AST, ALT, and total bilirubin, consistent with hepatocellular injury. The current etiology for significant transaminitis is unknown at this time, but the differential could include autoimmune hepatitis, supplement intake with medications/toxin injury, infectious process(CMV, EBV, or viral hepatitis E), and/or primary biliary cirrhosis. RECOMMENDATIONS: 1. We would follow up on the previously ordered labs including antismooth-muscle antibody, antimitochondrial antibody, and viral study for CMV, EBV, HSV, and hepatitis E. 2. If the antismooth-muscle antibody is elevated, we will start this patient on steroids, but would also obtain a liver biopsy for confirmation. 3. If all these lab studies come back negative for a definitive etiology, we would then proceed with liver biopsy as part of further evaluation for unknown cause of hepatitis. We will continue to follow. Please call with any questions. Job ID: [id number]
[2019-03-30 05:07] LABS: INR-International Normal Ratio 1.5; Prothrombin Time 17.9 SEC (12.0-14.7)
[2019-03-30 05:24] LABS: ALT (SGPT) 2138 U/L (8-55); AST (SGOT) 1929 U/L (5-34); Albumin 2.6 g/dL (3.5-5.0); Alkaline Phosphatase 117 U/L (40-150); Anion Gap 8 mmol/L (10-20); BUN (Urea Nitrogen) 7 mg/dL (9.8-20.1); Calc. Creatinine Clearance 139 mL/min (70-130); Calcium 8.8 mg/dL (7.8-10.44); Carbon Dioxide 30 mmol/L (22-29); Chloride 103 mmol/L (98-107); Estimated GFR-MDRD Greater than 90; Globulin 3.9 g/dL (2.4-3.5); Glucose 82 mg/dL (70-105); Potassium 3.4 mmol/L (3.5-5.1); Protein, Total 6.5 g/dL (6.0-8.3); Sodium 138 mmol/L (136-145)
[2019-03-30 12:21] LABS: EliA Vaculitis New Method **** NEW METHOD ****
[2019-03-30 13:10] LABS: Smooth Muscle Total ABS 55 Units (0-19)
[2019-03-30 19:08] LABS: CMV IgG AB Less than 0.60 U/mL (0.00-0.59)
[2019-03-30] MEDS ORDERED: predniSONE 20 MG TAB PO SCH (19:35)
--- NOTE | 2019-03-30 20:02 | PRG ---
DATE OF SERVICE: 03/30/2019 SUBJECTIVE: Ms. Ledesma has no acute complaints. She has ongoing jaundice. No abdominal pain, nausea, or vomiting. OBJECTIVE: VITAL SIGNS: Temperature is 98.5, pulse 78, and blood pressure 95/65. GENERAL: She is in no acute distress. She is jaundiced. Alert and oriented x3. EYES: Scleral icterus. LUNGS: Clear to auscultation bilaterally. HEART: Regular rate and rhythm without murmur. ABDOMEN: Soft, nontender, and nondistended. Bowel sounds are present. EXTREMITIES: No lower extremity edema. LABORATORY DATA: INR 1.5. Creatinine 0.63, bilirubin 22, AST 1929, ALT 2138, alkaline phosphatase 117, albumin 2.6. Gkjow-1-ensutosomhd level 203, ceruloplasmin 33, alpha fetoprotein 43.9. CMV, IgG, and IgM negative. EBV DNA negative. HSV DNA negative. Hepatitis A IgM nonreactive. Hepatitis B surface antigen nonreactive. Hepatitis B core IgM nonreactive. Hepatitis C antibody nonreactive. Total IgG is 2756, upper limit of normal is 1631, smooth muscle antibody titer is 55, and mitochondrial antibody is 121. 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 Treatment at this point will be with prednisone monotherapy and eventually transitioned to azathioprine. Liver biopsy unlikely change lead immediate, short-term, however, eventually we will need to establish the degree of fibrosis. RECOMMENDATIONS: 1. Start prednisone 60 mg daily for the first week and 40 mg daily for the second week. 2. She can discharge home once we see a significant downward trend in her liver tests. 3. Check hepatitis A total antibody and hepatitis B surface antibody to determine if she needs to be vaccinated for these or not. 4. Check antinuclear antibody to complete the lab workup. 5. She can be referred to transplant hepatology as an outpatient to establish care and assist with management of her autoimmune hepatitis. They can determine timing of liver biopsy as well. We might also defer liver biopsy to the transplant center given that they can also do biopsies transjugular if they wish and we will have their hepatopathologist as well. Job ID: [id number]
[2019-03-30 23:03] LABS: Hep B Surf AB Non-Reactive (NonReactive)
[2019-03-31 05:55] LABS: INR-International Normal Ratio 1.4; Prothrombin Time 17.6 SEC (12.0-14.7)
[2019-03-31 06:14] LABS: ALT (SGPT) 2139 U/L (8-55); AST (SGOT) 1812 U/L (5-34); Albumin 2.8 g/dL (3.5-5.0); Alkaline Phosphatase 135 U/L (40-150); Anion Gap 10 mmol/L (10-20); BUN (Urea Nitrogen) 8 mg/dL (9.8-20.1); Calc. Creatinine Clearance 127 mL/min (70-130); Calcium 9.1 mg/dL (7.8-10.44); Carbon Dioxide 26 mmol/L (22-29); Chloride 102 mmol/L (98-107); Estimated GFR-MDRD 88; Globulin 4.3 g/dL (2.4-3.5); Glucose 131 mg/dL (70-105); Potassium 3.8 mmol/L (3.5-5.1); Protein, Total 7.1 g/dL (6.0-8.3); Sodium 134 mmol/L (136-145)
[2019-03-31] MEDS: predniSONE 20 MG TAB PO SCH (09:17)
--- NOTE | 2019-03-31 13:01 | PRG ---
DATE OF SERVICE: 03/31/2019 SUBJECTIVE: Ms. Ledesma had some sweating this morning, but otherwise no symptoms. No fever or itching or abdominal pain. OBJECTIVE: VITAL SIGNS: Temperature 98.3, pulse 73, and blood pressure 99/63. GENERAL: She is in no acute distress. She is jaundiced. Alert and oriented x3. HEENT: Eyes have scleral icterus. LUNGS: Clear to auscultation bilaterally. HEART: Regular rate and rhythm without murmur. ABDOMEN: Soft, nontender, and nondistended. Bowel sounds are present. EXTREMITIES: No lower extremity edema. NEUROLOGIC: Reveals no asterixis. LABORATORY DATA: Creatinine 0.69, bilirubin 25, AST 1812, ALT 2139, and albumin 2.8. IMPRESSION: Autoimmune hepatitis with crossover PBC. Clinically, this is primarily the autoimmune hepatitis or anything that require treatment. The alkaline phosphatase is normal and the PBC crossover is based on the elevated mitochondrial antibody. Her smooth muscle antibody is high and total IgG is high and there is a globulin gap. RECOMMENDATIONS: 1. She started prednisone last night at 60 mg daily. We will like to see the trend of her liver tests down prior to discharge. 2. I will plan for consultation with Hepatology as an outpatient after discharge. Liver biopsy timing can be determined at that point. 3. Recheck the trend of her liver tests, INR, and blood count tomorrow. Job ID: [id number]
[2019-04-01 06:35] LABS: #Lymphocytes 1.4 thou/uL (1.20-3.40); #Monocytes 1.1 thou/uL (0.11-0.59); #Neutrophils 14.7 thou/uL (1.40-6.50); %Basophils 0.2 % (0.0-1.0); %Eosinophils 0.1 % (0.0-10.0); %Lymphocytes 8.1 % (21.0-51.0); %Monocytes 6.6 % (0.0-10.0); Hemoglobin 14.9 g/dL (12.0-16.0); Mean Corpuscular HGB CONC 32.9 g/dL (32.0-36.0); Mean Corpuscular Hemoglobin 30.4 pg (27.0-31.0); Mean Corpuscular Volume 92.6 fL (78.0-98.0); Mean Platelet Volume 10.4 fL (7.4-10.4); Platelet Count 222 thou/uL (130-400); RBC Distribution Width 18.9 % (11.5-14.5); Red Blood Cell (RBC) Count 4.88 mill/uL (4.20-5.40); White Blood Cell (WBC) Count 17.3 thou/uL (4.8-10.8)
[2019-04-01 06:40] LABS: INR-International Normal Ratio 1.3; Prothrombin Time 16.4 SEC (12.0-14.7)
[2019-04-01 06:58] LABS: ALT (SGPT) 1700 U/L (8-55); AST (SGOT) 1016 U/L (5-34); Albumin 2.7 g/dL (3.5-5.0); Alkaline Phosphatase 127 U/L (40-150); Anion Gap 9 mmol/L (10-20); BUN (Urea Nitrogen) 11 mg/dL (9.8-20.1); Bilirubin, Total 22.9 mg/dL (0.2-1.2); Calc. Creatinine Clearance 133 mL/min (70-130); Calcium 9.3 mg/dL (7.8-10.44); Carbon Dioxide 27 mmol/L (22-29); Chloride 105 mmol/L (98-107); Estimated GFR-MDRD Greater than 90; Globulin 4.2 g/dL (2.4-3.5); Glucose 126 mg/dL (70-105); Potassium 3.3 mmol/L (3.5-5.1); Protein, Total 6.9 g/dL (6.0-8.3); Sodium 138 mmol/L (136-145)
[2019-04-01 07:15] LABS: HBSAB Concentration 0.44 mIU/mL; Hep B Surf AB Non-Reactive (NonReactive)
[2019-04-01] MEDS: predniSONE 20 MG TAB PO SCH (09:36)
[2019-04-01 11:39] VITALS: BP 100/60; TEMP 98
[2019-04-01 15:56] LABS: ANA Symphony (Qualitative) Negative (Negative); ANA Symphony (Quantitative) 0.3 Ratio (< 0.7 Negative); dsDNA IgG Antibody 2.2 IU/mL (<10 Negative)
[2019-04-02 08:28] LABS: Hepatitis E Virus IgG ABS Negative (Negative)
== END 2019-04-01 12:24 | disposition home or self-care (01) | DRG 443 ==
LOC: ERS 10:19 → T4-A 14:15
PROVIDERS: ADMIT Specialist; ATTEND Specialist
DX: K75.4 Autoimmune hepatitis (principal); K80.20 Calculus of gallbladder without cholecystitis without obstruction; E66.01 Morbid (severe) obesity due to excess calories; Z68.33 Body mass index [BMI] 33.0-33.9, adult; K59.00 Constipation, unspecified
CPT/HCPCS: 36415; 74183; 76705; 80053; 80074; 80306; 80307; 81001; 81256; 82103; 82105; 82140; 82390; 82728; 83516; 83540; 83550; 83605; 83615; 83690; 85025; 85610; 85730; 86038; 86225; 86644; 86645; 86706; 86708; 86790; 87529; 87798; J2405; J3430; J7512